=== PATIENT | male | born 1975 | race Caucasian/White ===

== ENCOUNTER 2017-06-05 21:25 | Emergency (ER) | payer OTHER ==
[2017-06-05 21:38] VITALS: BP 116/70; PULSE 81; TEMP 98; BMI 35.4
[2017-06-05] MEDS ORDERED: IBUPROFEN 600 MG TABLET (FP) PO ONE (22:01)
[2017-06-05] MEDS ORDERED: IBUPROFEN 400 MG TABLET (FP) PO ONE (22:05)
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
== END 2017-06-05 22:30 | disposition home or self-care (01) ==
LOC: JERFT 21:25
PROC: 2W3QXYZ Immobilization of Right Lower Leg using Other Device (ICD-10-PCS; principal; 2017-06-05)
DX: S83.411A Sprain of medial collateral ligament of right knee, initial encounter (principal); W10.8XXA Fall (on) (from) other stairs and steps, initial encounter; Y93.89 Activity, other specified; Y92.89 Other specified places as the place of occurrence of the external cause; Z87.828 Personal history of other (healed) physical injury and trauma
CPT/HCPCS: 29530; 73562-TC-RT; 99281-25

== ENCOUNTER 2021-07-05 23:33 | Emergency (ER) | payer OTHER ==
[2021-07-05 23:49] VITALS: BP 112/72; PULSE 89; TEMP 98.7; BMI 41.3
[2021-07-06] MEDS ORDERED: KETOROLAC TROMETHAMINE 30 MG/1 ML VIAL IM ONE (00:40)
[2021-07-06] MEDS ORDERED: KETOROLAC TROMETHAMINE 30 MG/1 ML VIAL ONE (01:22)
[2021-07-06] MEDS ORDERED: IBUPROFEN 400 MG TABLET (FP) PO ONE ×2 (01:27→01:52)
== END 2021-07-06 01:56 | disposition home or self-care (01) ==
LOC: JER 23:33
PROC: 3E0233Z Introduction of Anti-inflammatory into Muscle, Percutaneous Approach (ICD-10-PCS; principal; 2021-07-05)
DX: M25.562 Pain in left knee (principal); V49.40XA Driver injured in collision with unspecified motor vehicles in traffic accident, initial encounter
CPT/HCPCS: 73562-TC-LT-FY; 99284-25